=== PATIENT | male | born 1955 | race Hispanic/Latino ===

== ENCOUNTER 2018-09-05 07:59 | Day surgery (SDC) | payer OTHER ==
--- NOTE | 2018-08-30 14:50 | RAD REPORT ---
EXAM DESCRIPTION: RAD - Chest Pa And Lat (2 Views) - 08/30/2018 2:44 pm CLINICAL HISTORY: preop Chest pain. COMPARISON: No comparisons FINDINGS: The lungs are clear. The heart is normal in size. No displaced fractures. IMPRESSION: No acute or concerning finding suspected.
[2018-08-30 14:56] LABS: Absolute Neutrophil 6.5 K/uL (1.8-8.0); Basophils % 0.7 % (0-1.3); Hematocrit 42.2 % (39.6-49.0); Lymphocytes % 20.4 % (15.3-44.8); MCH 33.9 pg (27.0-35.0); MCV 100.5 fL (80-100); MPV 7.1 fL (7.6-11.3); Monocytes % 9.6 % (3.3-12.3)
[2018-08-30 15:16] LABS: Potassium 4.3 mmol/L (3.5-5.1)
--- NOTE | 2018-08-30 16:45 | EKG ---
Test Date: 2018-08-30 Test Time: 14:34:43 Hospital Coder: BARBI MEASUREMENT RESULTS: Intervals: Rate: 71 SD: 170 QRSD: 94 QT: 402 QTc: 436 [place]: P: 38 SD: 170 QRS: 57 T: 69 INTERPRETIVE STATEMENTS: Normal sinus rhythm Normal ECG Compared to ECG 08/07/2004 20:34:00 No significant changes Electronically Signed On 08-30-18 16:44:19 CDT by John Levine
[2018-09-05] MEDS ORDERED: CEFAZOLIN/SWI 1gm 1 GM/10 ML SYR ONE (08:11)
[2018-09-05] MEDS: NA CHLORIDE 0.9% 1,000 ML ONE ×2 (08:23→08:49)
[2018-09-05] MEDS ORDERED: MIDAZOLAM HCL 2 MG/2 ML INJ ONE ×2 (08:54→09:02)
[2018-09-05] MEDS ORDERED: PROPOFOL 200 MG/20 ML VIAL IV ONE (09:01)
[2018-09-05] MEDS ORDERED: FENTANYL CITR 100 MCG/2 ML ONE (09:02)
[2018-09-05] MEDS ORDERED: LIDOCAINE 2% MPF 5 ML VIAL ONE (09:02)
[2018-09-05] MEDS ORDERED: KETOROLAC 30 MG/ML INJ ONE (09:22)
[2018-09-05] MEDS ORDERED: ONDANSETRON HCL 40 MG/20 ML VIAL ONE (09:23)
[2018-09-05] MEDS ORDERED: BUPIVACAINE 0.5% PF 10 ML VIAL ONE (09:35)
--- NOTE | 2018-09-05 09:47 | P.BOP ---
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
[2018-09-05] MEDS: MEPERIDINE HCL 25 MG/0.5 ML ONE ×2 (10:02→10:07)
[2018-09-05] MEDS ORDERED: CODEINE 30MG/APAP 300MG TAB ONE (10:33)
[2018-09-05 10:40] VITALS: TEMP 96.8
[2018-09-05 12:35] VITALS: BP 146/72; O2SAT 97
--- NOTE | 2018-09-05 13:46 | OP ---
Date of Procedure: 09/05/2018 Surgeon: Brett Chaves MD Preoperative Diagnosis: Incarcerated tender ventral hernia. Postoperative Diagnosis: Incarcerated tender ventral hernia. Procedures: Open repair of incarcerated tender ventral hernia. Estimated Blood Loss: Less than 10 cc. Specimen: Hernia sac and incarcerated omentum. Finding: Incarcerated omentum. Indications: This is the case of a 63-year-old patient who comes with a hernia in the ventral region just below the umbilicus. Benefit, alternatives, and risks of repair of possible mesh, fully explai ruth to the patient, which include but are not limited to infection, bleeding, damage to adjacent stru ctures, anesthesia complication, recurrence, MN, and even . He also understands this may not re lieve any symptoms. He might need more than 1 surgical intervention. He was explained the importanc e of no heavy lifting and not gaining weight. He signed a consent. Description Of Procedure: The patient was brought to the operating room, placed in supine position. Anesthesia was done without complication. Abdominal area was prepped and draped in usual sterile fa shion. A time-out was called. An incision was done in the ventral region. The incision was carried down to fascia. We noticed the patient to have incarcerated omentum on a hernia sac. So, we opened the hernia sac, noticed the omentum to be stuck in that area, so we had to suture ligate the omentum and retract back into the abdomen, after fully inspect to make sure there was no bleeding. The kj ia sac was removed. The fascial edges were cleaned. We noticed the hernia edges come out and nicely , so we proceeded to close the defects with a [id number] fashion with #1 PDS multiple times unti l the defect was closed. After that, a 3-0 chromic was used for the subcutaneous tissue and then the subcuticular closure with 3-0 chromic and Steri-Strips on top. Sponge count and instrument counts w ere correct. The patient tolerated the procedure well. The patient was sent to Recovery in stable c ondition. ZACH/CLAUDIA Voice ID: [id number] Report ID: [id number]
--- NOTE | 2018-09-05 13:52 | DS ---
Date of Discharge: 09/05/2018 Diagnosis: Incarcerated tender ventral hernia. Procedure: Open repair of an incarcerated tender ventral hernia. Disposition: Home. Activity: As tolerated. No heavy lifting. Discharge Instructions: Follow up in my office 1 week. Call for appointment, [phone]. Keep area d ry for 48 hours, then may shower. Keep Steri-Strips intact. Medications: Include Tylenol No. 3, q.4 hours p.r.n. pain, Bactrim DS p.o. b.i.d. ZACH/CLAUDIA Voice ID: [id number] Report ID: [id number]
== END 2018-09-05 11:20 | disposition home or self-care (01) ==
LOC: OR 07:59
PROVIDERS: ATTEND Surgery
PROC: 0WQF0ZZ Repair Abdominal Wall, Open Approach (ICD-10-PCS; principal; 2018-09-05 09:45)
DX: K43.6 Other and unspecified ventral hernia with obstruction, without gangrene (principal); E11.9 Type 2 diabetes mellitus without complications; E78.00 Pure hypercholesterolemia, unspecified; F17.210 Nicotine dependence, cigarettes, uncomplicated; Z82.49 Family history of ischemic heart disease and other diseases of the circulatory system; Z83.3 Family history of diabetes mellitus
CPT/HCPCS: 36415; 71046; 80048; 82962; 85025; 88302; 93005; J0690; J2175; J2250; J2405; J3010; J7030

== ENCOUNTER 2022-04-07 11:03 | Day surgery (SDC) | payer OTHER ==
--- NOTE | 2022-04-05 14:59 | RAD REPORT ---
EXAM DESCRIPTION: RAD - Chest Pa And Lat (2 Views) - 04/05/2022 2:53 pm CLINICAL HISTORY: Pre op pending heart cath Chest pain. COMPARISON: Chest Pa And Lat (2 Views) dated 08/30/2018 FINDINGS: The lungs are clear. The heart is normal in size. No displaced fractures. IMPRESSION: No acute or concerning finding suspected.
[2022-04-05 15:02] LABS: Absolute Lymphocytes (CBC) 1.7 K/uL (0.7-4.9); Hematocrit 38.7 % (39.6-49.0); Lymphocytes % 18.4 % (15.3-44.8); MPV 6.5 fL (7.6-11.3); RBC Red Blood Cell Count 4.07 M/uL (4.33-5.43)
[2022-04-05 15:05] LABS: Protime INR 1.06
[2022-04-05 15:15] LABS: Potassium 4.2 mmol/L (3.5-5.1)
--- NOTE | 2022-04-06 07:32 | EKG ---
Test Date: 2022-04-05 Test Time: 13:37:58 Roasterman: ANDRAE MEASUREMENT RESULTS: Intervals: Rate: 76 [place]: 170 QRSD: 84 QT: 380 QTc: 427 [place]: P: 57 [place]: 170 QRS: 84 T: 81 INTERPRETIVE STATEMENTS: Normal sinus rhythm Normal ECG Compared to ECG 08/30/2018 14:34:43 No significant changes Electronically Signed On 04-06-22 07:29:54 CDT by John Levine
[~2022-04-07 11:03] MED LIST: HEPA 1000U/500MLS 2,000 UNIT/1,000 ML BAG IV ONE; HEPARIN 5000 UNIT/ML 1 ML VIAL ONE
[2022-04-07] MEDS ORDERED: HEPARIN 10,000 UNIT/10 ML VIAL IV ONE (11:04)
[2022-04-07] MEDS ORDERED: VERAPAMIL HCL 10 MG/4 ML VIAL IV ONE (11:04)
[2022-04-07] MEDS ORDERED: LIDOCAINE 1% MPF 30 ML VIAL ONE (11:05)
[2022-04-07] MEDS ORDERED: ATROPINE SULF 1 MG/10 ML SYR IV ONE (11:05)
[2022-04-07] MEDS ORDERED: NITROGLYCERIN/D5W 25 MG/250 ML BTL IV ONE (11:06)
[2022-04-07] MEDS ORDERED: NITROGLYCERIN 100 MCG/ML SYR (for cath lab use only) IV ONE (11:06)
[2022-04-07 11:50] VITALS: TEMP 97
[2022-04-07] MEDS ORDERED: NA CHLORIDE 0.9% 500 ML ONE (12:00)
[2022-04-07] MEDS ORDERED: FENTANYL CITR 100 MCG/2 ML ONE (12:22)
[2022-04-07] MEDS ORDERED: MIDAZOLAM HCL 2 MG/2 ML INJ ONE (12:22)
[2022-04-07 14:17] VITALS: BP 115/69; O2SAT 98
--- NOTE | 2022-04-08 01:04 | OP ---
Date of Procedure: 04/07/2022 Surgeon: THO GONZALEZ Procedure Performed: Selective coronary angiogram. Indication: Unstable angina with grossly abnormal stress test. Access: Right radial artery 6-Tanzanian closed with TR band. Complications: None. Bleeding: Less than 10 mL. Anesthesia: Total sedation time was 20 minutes, used fentanyl and Versed. Description Of Procedure: After risks, benefits, and alternatives were explained, the patient agreed to proceed and signed informed consent. The patient was brought into the cardiac catheterization la boratory, prepped and draped in a sterile fashion. Then, we accessed the right radial artery using p [employer] micropuncture kit, placed 6-Tanzanian slender sheath and took 5-Tanzanian tiger 4.0 catheter in th e aortic root, engaged left main, right coronary artery, took standard views and then removed the cat heter and sheath, placed TR band with good hemostasis. Findings: 1.Left main, diffusely diseased, 60% proximal to mid and distal 90%. 2.LAD, diffuse proximal 80% to 90% and focal 99% right at the diagonal 1 takeoff with the diagonal 1 being a large branch that is patent, it fills through RCA collaterals. 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 4.RCA, very large and dominant with mid 50% to 60%, it is giving collaterals to the LAD and to the l eft circumflex. Conclusion: Severe multivessel disease including left main, left circ, and LAD and moderate RCA dise ase. Plan: Sent for coronary artery bypass surgery. /CLAUDIA Voice ID: [id number] Report ID: [id number]
== END 2022-04-07 14:50 | disposition home or self-care (01) ==
LOC: CCL 11:03
PROVIDERS: ATTEND Internal Medicine
DX: I25.110 Atherosclerotic heart disease of native coronary artery with unstable angina pectoris (principal); I25.82 Chronic total occlusion of coronary artery; I10 Essential (primary) hypertension; I73.9 Peripheral vascular disease, unspecified; R09.89 Other specified symptoms and signs involving the circulatory and respiratory systems; E11.9 Type 2 diabetes mellitus without complications; F17.210 Nicotine dependence, cigarettes, uncomplicated; Z79.84 Long term (current) use of oral hypoglycemic drugs; Z79.899 Other long term (current) drug therapy; Z20.822 Contact with and (suspected) exposure to COVID-19; Z82.49 Family history of ischemic heart disease and other diseases of the circulatory system
CPT/HCPCS: 93005; 85025; 80048; 36415; 85610; 82947; 85730; 71046; 93454; U0003; C1893; Q9966; J1644 ×2; J2250; J3010; J7040

== ENCOUNTER 2022-05-16 11:00 | Day surgery (SDC) | payer OTHER ==
[2022-05-12 10:50] LABS: Absolute Lymphocytes (CBC) 1.5 K/uL (0.7-4.9); Hematocrit 34.3 % (39.6-49.0); Lymphocytes % 21.1 % (15.3-44.8); MPV 6.4 fL (7.6-11.3); RBC Red Blood Cell Count 3.58 M/uL (4.33-5.43)
[2022-05-12 10:56] LABS: Protime INR 1.1
[2022-05-12 11:04] LABS: Potassium 4.1 mmol/L (3.5-5.1)
[~2022-05-16 11:00] MED LIST changes: +ASPIRIN 325 MG TAB ONE; +ATROPINE SULF 1 MG/10 ML SYR IV ONE; +CLOPIDOGREL 75 MG TABLET ONE; +FENTANYL CITR 100 MCG/2 ML ONE; +HEPARIN 10,000 UNIT/10 ML VIAL IV ONE; +MIDAZOLAM HCL 2 MG/2 ML INJ ONE; +TICAGRELOR 90 MG TABLET PO ONE; +VERAPAMIL HCL 10 MG/4 ML VIAL IV ONE
[2022-05-16] MEDS ORDERED: NA CHLORIDE 0.9% 500 ML ONE (11:11)
[2022-05-16] MEDS ORDERED: NITROGLYCERIN/D5W 25 MG/250 ML BTL IV ONE (11:54)
[2022-05-16] MEDS ORDERED: NITROGLYCERIN 100 MCG/ML SYR (for cath lab use only) IV ONE (11:54)
--- NOTE | 2022-05-16 14:07 | OP ---
Date of Procedure: 05/16/2022 Surgeon: THO GONZALEZ Procedure Performed: Peripheral angiogram with runoff. Indication: Severe peripheral vascular disease. Access: Right radial artery 6-Canadian closed with TR band. Complications: None. Bleeding: Less than 10 mL. Anesthesia: Total sedation time was 35 minutes. Description Of Procedure: After risks, benefits, and alternatives were explained, the patient agreed to procedure and signed informed consent. The patient was brought into the cardiac catheterization laboratory, prepped and draped in usual sterile fashion. Then, I accessed right radial artery using pediatric micropuncture kit after giving fentanyl and Versed in incremental doses to achieve adequate moderate sedation. I then a place 6-Canadian Slender sheath. I then took a 4-Canadian long pigtail cat heter into the distal aorta, performed distal aortogram with runoff and then removed the catheter and sheath, and placed TR band with good hemostasis. Findings: 1.Distal aorta is patent. 2.Right common iliac artery is diffusely stenosed at 80%, stenosis. 3.Left common iliac artery appears normal. 4.Bilateral femoral arteries are diffuse, 30% to 40% stenosis. 5.Left SFA has diffuse 60% to 70% stenosis and then distally a focal 80% stenosis, the right SFA dis jesus 70% stenosis. 6.Below the knee on the right side, the anterior tibial artery is occluded and then there is diffuse disease including the peroneal and posterior tibial arteries. 7.On the left side and below the knee, 3 vessel runoff are patent all the way to the foot with diffu se 30% to 40% stenosis. Conclusion: 1.Severe right common iliac artery stenosis. 2.Severe left SFA stenosis. Plan: 1.IVUS guided balloon angioplasty on the right common iliac. 2.Staged intervention of the left SFA. SR/MODL Voice ID: [id number] Report ID: [id number]
[2022-05-16 15:08] VITALS: BP 125/56; O2SAT 100
== END 2022-05-16 15:55 | disposition home or self-care (01) ==
LOC: CCL 11:00
PROVIDERS: ATTEND Internal Medicine
DX: I70.203 Unspecified atherosclerosis of native arteries of extremities, bilateral legs (principal); I70.92 Chronic total occlusion of artery of the extremities; I25.10 Atherosclerotic heart disease of native coronary artery without angina pectoris; R09.89 Other specified symptoms and signs involving the circulatory and respiratory systems; E11.9 Type 2 diabetes mellitus without complications; I10 Essential (primary) hypertension; E78.5 Hyperlipidemia, unspecified; F17.210 Nicotine dependence, cigarettes, uncomplicated; Z95.1 Presence of aortocoronary bypass graft; Z79.02 Long term (current) use of antithrombotics/antiplatelets; Z79.84 Long term (current) use of oral hypoglycemic drugs; Z79.899 Other long term (current) drug therapy; Z20.822 Contact with and (suspected) exposure to COVID-19; Z82.49 Family history of ischemic heart disease and other diseases of the circulatory system
CPT/HCPCS: 85025; 80048; 36415; 85610; 82947; 85730; 36200; 75630; U0003; C1893; J1644 ×2; J2250; J3010; J7040